=== PATIENT | male | born 1945 | race Caucasian/White ===

== ENCOUNTER 2017-12-17 18:57 | Observation (INO) | payer OTHER ==
[~2017-12-17] VITALS: Ht 167.6 cm; Wt 42.4 kg
[~2017-12-17 18:57] MED LIST: ~No Medications
[2017-12-17] MEDS ORDERED: BEVESPI AEROS10.7 GM IH (20:11)
[2017-12-17] MEDS ORDERED: PROAIR HFA8.5 GM IH (20:11)
[2017-12-17 20:32] LABS: HEMATOCRIT 39.8 % (38.0-50.0); HEMOGLOBIN 13.5 G/DL (12.5-16.6); MCH 31.7 PG (29.0-34.0); MCHC 33.9 G/DL (30.0-36.0); MCV 93.4 FL (86-99); RBC DIS.WIDTH-CV 13.8 % (11.8-14.6); RBC DIS.WIDTH-SD 46.5 % (39-53); RED BLOOD COUNT 4.26 M/uL (4.00-5.50); WHITE BLOOD COUNT 10.6 K/uL (4.1-10.2)
[2017-12-17 20:41] LABS: ALBUMIN 4.2 g/dL (3.2-4.8); CHLORIDE 109 mEq/L (99-109); POTASSIUM 4.5 mEq/L (3.7-5.4); SODIUM 146 mEq/L (136-147)
[2017-12-17 20:44] LABS: GLUCOSE 103 mg/dL (70-99); TOTAL PROTEIN 7.5 g/dL (6.4-8.3)
[2017-12-17 20:47] LABS: ALKALINE PHOSPHATASE 57 IU/L (3-129)
[2017-12-17 20:48] LABS: CREATININE 1.4 mg/dL (0.6-1.3); GFR ESTIMATE (CALCULATED) 53 mL/min/ (58.99-99999)
[2017-12-17 20:49] LABS: AST (GOT) 17 IU/L (2-34); DIRECT BILIRUBIN 0.4 mg/dL (0.0-0.3); INTER. NORMALIZED RATIO 1.1; UREA NITROGEN (BUN) 33 mg/dL (9-23)
[2017-12-17 20:50] LABS: ALT (GPT) 9 IU/L (3-49)
[2017-12-17 20:52] LABS: PTT 33.8 SEC (25-37)
[2017-12-17 21:10] LABS: PLAT.SUFFICIENCY ADEQUATE; PLATELET COUNT 198 K/uL (156-360)
[2017-12-18 00:21] VITALS: BP 159/65
[2017-12-18 03:38] VITALS: BP 159/67
[2017-12-18 06:40] LABS: BASOPHIL (%) 0.9 % (0-1); BASOPHIL COUNT 0.1 K/uL (0-0.1); EOSINOPHIL (%) 5.7 % (0-5); EOSINOPHIL COUNT 0.6 K/uL (0-0.3); HEMATOCRIT 37.4 % (38.0-50.0); HEMOGLOBIN 12.1 G/DL (12.5-16.6); IMMATURE GRANULOCYTE (%) 0.3 % (0.0-0.7); LYMPHOCYTE (%) 17.6 % (15-42); LYMPHOCYTE COUNT 1.8 K/uL (1.0-2.8); MCH 30.7 PG (29.0-34.0); MCHC 32.4 G/DL (30.0-36.0); MCV 94.9 FL (86-99); MONOCYTE (%) 10.7 % (3-12); MONOCYTE COUNT 1.1 K/uL (0-0.8); NEUTROPHIL (%) 64.8 % (45-76); NEUTROPHIL COUNT 6.5 K/uL (1.8-6.4); PLATELET COUNT 199 K/uL (156-360); RBC DIS.WIDTH-CV 13.5 % (11.8-14.6); RBC DIS.WIDTH-SD 47.7 % (39-53); RED BLOOD COUNT 3.94 M/uL (4.00-5.50)
[2017-12-18 06:58] LABS: ALBUMIN 3.6 G/DL (3.2-4.8); ALKALINE PHOSPHATASE 49 IU/L (3-129); ALT (GPT) 7 IU/L (3-49); AST (GOT) 12 IU/L (2-34); CHLORIDE 108 MEQ/L (99-109); CREATININE 1.1 MG/DL (0.6-1.3); DIRECT BILIRUBIN 0.1 mg/dL (0.0-0.3); GFR ESTIMATE (CALCULATED) > 59 mL/min/ (58.99-99999); GLUCOSE 95 mg/dL (70-99); POTASSIUM 4.1 MEQ/L (3.7-5.4); SODIUM 144 MEQ/L (136-147); TOTAL BILIRUBIN 0.6 MG/DL (0.0-1.0); TOTAL PROTEIN 6.1 G/DL (6.4-8.3); UREA NITROGEN (BUN) 31 mg/dL (9-23)
[2017-12-18 08:03] VITALS: BP 133/65
[2017-12-18 11:36] VITALS: BP 164/70
[2017-12-18] MEDS ORDERED: SENNA PLUS TAB1 EACH PO (14:37)
[2017-12-18] MEDS ORDERED: TRAMADOL HCL50 MG PO (14:37)
[2017-12-18 15:51] VITALS: BP 175/72
[2017-12-18 23:51] VITALS: BP 144/69
[2017-12-19 04:48] VITALS: BP 183/74
[2017-12-19 05:29] VITALS: BP 127/56
[2017-12-19 07:37] VITALS: BP 115/51
[2017-12-19 11:52] VITALS: BP 91/52
[2017-12-19 15:54] VITALS: BP 129/61
[2017-12-19 19:23] VITALS: BP 123/60
[2017-12-20] VITALS (7 sets, daily range): BP systolic 99–152; BP diastolic 53–73
[2017-12-20 11:17] LABS: HDL CHOLESTEROL 41 MG/DL (Desirable>=40); LDL CHOLESTEROL 122 mg/dL (Desirable<100); NON-HDL CHOLESTEROL 145 mg/dL (Desirable<160); TOTAL CHOLESTEROL 186 mg/dL (Desirable<200); TRIGLYCERIDES 117 MG/DL (Normal: <150)
[2017-12-20 12:50] LABS: THYROTROPIN (TSH) 1.8 MIU/L (0.4-5.5)
[2017-12-20 12:59] LABS: COMMENTS - BLOOD GASES +C; FI02 21 %; SITE RB; TOTAL RESP RATE 20 resp/min
[2017-12-20 13:00] LABS: SERUM ETHYL ALCOHOL < 10 mg/dL
[2017-12-20 13:00] LABS: BASE EXCESS 4.9 mEq/L (-3 to +3); BICARBONATE 29.9 mEq/L (22-26); CARBOXY HGB 1.7 % (0-5); METHEMOGLOBIN 1.6 % (0-1.5); O2 SATURATION (CALCULATED) 98.4 % (95-99); PCO2 45 mm Hg (35-45); PO2 82 mm Hg (80-100); pH 7.43 (7.35-7.45)
[2017-12-20 14:54] LABS: APPEARANCE CLEAR ((CLEAR)); BILIRUBIN NEGATIVE; BLOOD NEGATIVE; COLOR YELLOW ((YELLOW)); GLUCOSE (STRIP) NEGATIVE; KETONES 5; LEUKOCYTES TRACE; NITRITE NEGATIVE; PROTEIN (STRIP) NEGATIVE; SPECIFIC GRAVITY 1.019 (1.000-1.030)
[2017-12-20 16:27] LABS: BACTERIA NONE SEEN /HPF; EPITHELIAL CELLS RARE /HPF; MUCUS TRACE /LPF; RED BLOOD CELLS 0-5 /HPF (0-5); UCUL ADDED? NO; WHITE BLOOD CELLS 0-5 /HPF (0-5)
[2017-12-20 17:33] LABS: BENZODIAZEPINES, URINE SCREEN Negative (200 ng/mL)
[2017-12-20 18:27] LABS: FOLIC ACID (FOLATE) 11.7 NG/ML (5.0-22.0)
[2017-12-21 04:50] VITALS: BP 144/67
[2017-12-21 06:11] LABS: BASOPHIL (%) 0.9 % (0-1); BASOPHIL COUNT 0.1 K/uL (0-0.1); EOSINOPHIL (%) 9.2 % (0-5); EOSINOPHIL COUNT 0.8 K/uL (0-0.3); HEMATOCRIT 34.5 % (38.0-50.0); HEMOGLOBIN 11.3 G/DL (12.5-16.6); IMMATURE GRANULOCYTE (%) 0.2 % (0.0-0.7); LYMPHOCYTE (%) 29.4 % (15-42); LYMPHOCYTE COUNT 2.6 K/uL (1.0-2.8); MCHC 32.8 G/DL (30.0-36.0); MCV 94.8 FL (86-99); MONOCYTE (%) 7.6 % (3-12); MONOCYTE COUNT 0.7 K/uL (0-0.8); NEUTROPHIL (%) 52.7 % (45-76); NEUTROPHIL COUNT 4.6 K/uL (1.8-6.4); PLATELET COUNT 204 K/uL (156-360); RBC DIS.WIDTH-CV 13.6 % (11.8-14.6); RBC DIS.WIDTH-SD 47.5 % (39-53); RED BLOOD COUNT 3.64 M/uL (4.00-5.50); WHITE BLOOD COUNT 8.7 K/uL (4.1-10.2)
[2017-12-21 06:41] LABS: CHLORIDE 108 MEQ/L (99-109); CREATININE 0.9 MG/DL (0.6-1.3); GFR ESTIMATE (CALCULATED) > 59 mL/min/ (58.99-99999); GLUCOSE 82 mg/dL (70-99); POTASSIUM 4.3 MEQ/L (3.7-5.4); SODIUM 142 MEQ/L (136-147); UREA NITROGEN (BUN) 17 mg/dL (9-23)
[2017-12-21 08:04] VITALS: BP 143/61
[2017-12-21 10:30] VITALS: BP 119/56
[2017-12-21] MEDS ORDERED: NICOTINE PATCH1 EAC1 TD (13:47)
[2017-12-21] MEDS ORDERED: PRAVASTATIN SOD40 MG PO (13:47)
[2017-12-21] MEDS ORDERED: CYANOCOBALAM1000 MCG PO (13:48)
[2017-12-21] MEDS ORDERED: DONEPEZIL HCL5 MG PO (14:50)
== END 2017-12-21 15:58 | disposition home or self-care (01) ==
LOC: EME 18:57 → EDOF 22:58 → 3EAST 22:58 → EDOF 22:58 → ENRESERV 23:03 → 3EAST 12-18 00:14
PROVIDERS: Hospitalist; Internal Medicine; Physician Assistant
PROC: 0JQ10ZZ Repair Face Subcutaneous Tissue and Fascia, Open Approach (ICD-10-PCS; principal; 2017-12-17)
DX: S02.2XXA Fracture of nasal bones, initial encounter for closed fracture (principal); S01.81XA Laceration without foreign body of other part of head, initial encounter; S06.6X9A Traumatic subarachnoid hemorrhage with loss of consciousness of unspecified duration, initial encounter; N17.9 Acute kidney failure, unspecified; N18.9 Chronic kidney disease, unspecified; R41.0 Disorientation, unspecified; F01.50 Vascular dementia, unspecified severity, without behavioral disturbance, psychotic disturbance, mood disturbance, and anxiety; Z86.73 Personal history of transient ischemic attack (TIA), and cerebral infarction without residual deficits; J44.9 Chronic obstructive pulmonary disease, unspecified; R53.1 Weakness; F17.210 Nicotine dependence, cigarettes, uncomplicated; W01.0XXA Fall on same level from slipping, tripping and stumbling without subsequent striking against object, initial encounter
CPT/HCPCS: 36600; 70450; 70486; 70553; 71045; 80048; 80061; 80076; 80306 90; 81003; 82140; 82607; 82746; 84443; 85025; 85027; 85610; 85730; 94799; 99281; 99285; G0378; G0480; G8978 GP CI; G8979 GP CI; G8980 GP CI; G8987 GO CH; G8988 GO CH; J7030; J7040